=== PATIENT | male | born 1990 | race Caucasian/White ===

== ENCOUNTER 2023-03-21 20:15 | Emergency (ER) | payer MEDICAID ==
[~2023-03-21] VITALS: Ht 167.6 cm; Wt 79.0 kg
[~2023-03-21 20:15] MED LIST: PER5325T PO
[2023-03-21 20:31] VITALS: BP 147/95
[2023-03-21] MEDS ORDERED: HYDROcodone/acetaminophen 10/325mg tab PO STA (20:36)
[2023-03-21] MEDS ORDERED: ketorolac trometh inj. 60 MG/2 ML VIAL IM ONE (21:00)
[2023-03-21] MEDS ORDERED: IBUP-1986 PO (21:22)
--- NOTE | 2023-03-21 21:22 | NUR ---
right hand swelling, cms intact placed into room 10 for thumb spica splint/meds adm.
== END 2023-03-21 21:55 | disposition home or self-care (01) ==
LOC: ER 20:15
DX: S62.312A Displaced fracture of base of third metacarpal bone, right hand, initial encounter for closed fracture (principal); W22.8XXA Striking against or struck by other objects, initial encounter; Y93.89 Activity, other specified; Y92.89 Other specified places as the place of occurrence of the external cause; Y99.8 Other external cause status
CPT/HCPCS: 29125; 73130; 96372; 99283; J1885; A4565